=== PATIENT | female | born 1980 | race Caucasian/White ===

== ENCOUNTER 2016-11-21 16:25 | Emergency (ER) | payer MEDICAID, OTHER, SELFPAY ==
[~2016-11-21] VITALS: Ht 157.5 cm; Wt 65.8 kg
[2016-11-21] MEDS ORDERED: HYDROcodone/APAP 5/325 TABLET PO ONE (17:00)
[2016-11-21] MEDS ORDERED: HYDROcodone/APAP 5/325 TABLET ONE (17:05)
[2016-11-21 17:13] VITALS: BP 136/92
[2016-11-21 17:25] LABS: HEMATOCRIT 43.8 % (34.6-47.8); HEMOGLOBIN 14.5 g/dL (11.7-16.4); WHITE BLOOD COUNT 7.7 x10^3/uL (3.4-10)
[2016-11-21 17:32] LABS: BLOOD UREA NITROGEN 10 mg/dL (7-18)
== END 2016-11-21 18:19 | disposition home or self-care (01) ==
LOC: ED 18:13
DX: N92.1 Excessive and frequent menstruation with irregular cycle (principal); E78.00 Pure hypercholesterolemia, unspecified
CPT/HCPCS: 36415; 76830; 80048; 82040; 84703; 85025; 99285

== ENCOUNTER 2017-02-24 09:44 | Emergency (ER) | payer MEDICAID ==
[~2017-02-24] VITALS: Ht 154.9 cm; Wt 66.5 kg
[2017-02-24] MEDS ORDERED: SODIUM CHLORIDE FLUSH 10ML SYR IVF ONE (10:30)
[2017-02-24] MEDS ORDERED: ONDANSETRON 2MG/ML, 2ML IVPush ONE (10:30)
[2017-02-24] MEDS ORDERED: SODIUM CHLORIDE 0.9% 1,000ML IVBOLUS ONE (10:30)
[2017-02-24 11:03] LABS: HEMATOCRIT 42.4 % (34.6-47.8); HEMOGLOBIN 14.7 g/dL (11.7-16.4)
[2017-02-24] MEDS ORDERED: ONDANSETRON 2MG/ML, 2ML ONE (11:06)
[2017-02-24 11:13] LABS: BLOOD UREA NITROGEN 6 mg/dL (7-18)
[2017-02-24 11:14] LABS: PATH.CAST-FLAG NOT PRESENT; SPERM-FLAG NOT PRESENT; SRC-FLAG NOT PRESENT; XTAL-FLAG NOT PRESENT; YLC-FLAG NOT PRESENT
[2017-02-24 11:19] LABS: ASPARTATE AMINO TRANSFERASE 12 U/L (15-37)
[2017-02-24] MEDS ORDERED: morphine SULFATE 10 MG/ML, 1ML ONE ×2 (11:41→13:06)
[2017-02-24] MEDS: MORPHINE SULFATE 4 MG/ML, 1ML IVPush PRN ×2 (11:46→13:07)
[2017-02-24 14:42] VITALS: BP 135/93
== END 2017-02-24 14:46 | disposition home or self-care (01) ==
LOC: ED 13:36
DX: M54.5 Low back pain (principal); R10.84 Generalized abdominal pain; E78.00 Pure hypercholesterolemia, unspecified
CPT/HCPCS: 36415; 74176; 80053; 81001; 84703; 85025; 96374; 96375; 96376; 99285; J2405; J7030

== ENCOUNTER 2017-05-18 23:51 | Emergency (ER) | payer MEDICAID ==
[~2017-05-18] VITALS: Ht 162.6 cm; Wt 66.5 kg
[2017-05-19] MEDS ORDERED: ONDANSETRON ODT 4 MG ONE (00:44)
[2017-05-19] MEDS ORDERED: FAMOTIDINE 20 MG TABLET ONE (00:44)
[2017-05-19] MEDS ORDERED: MAALOX/HYOSCYAMINE/LIDOCAINE 45 ML BTL ONE (00:44)
[2017-05-19] MEDS ORDERED: ASPIRIN 81 MG TABLET CHEW ONE (00:45)
[2017-05-19 00:58] LABS: BASOPHILS # (AUTO) 0.01 x10^3/uL (0-0.1); BASOPHILS % (AUTO) 0 % (0-1); EOSINOPHILS # (AUTO) 0.32 x10^3/uL (0-0.4); EOSINOPHILS % (AUTO) 5 % (1-7); LYMPHOCYTES # (AUTO) 1.31 x10^3/uL (1-3.4); LYMPHOCYTES % (AUTO) 19 % (22-44); MD NO; MEAN CORPUSCULAR HEMOGLOBIN 30.6 pg (27.0-34.8); MEAN CORPUSCULAR HGB CONC 33.9 g/dL (32.4-35.8); MEAN CORPUSCULAR VOLUME 90.4 fL (80-100); MEAN PLATELET VOLUME 7.3 fL (7.4-10.4); MONOCYTES # (AUTO) 0.45 x10^3/uL (0.2-0.8); MONOCYTES % (AUTO) 6 % (2-9); NEUTROPHILS # (AUTO) 4.88 x10^3/uL (1.8-6.8); NEUTROPHILS % (AUTO) 70 % (42-75); PLATELET COUNT 343 x10^3/uL (130-400); RED BLOOD COUNT 4.74 x10^6/uL (3.82-5.3); RED CELL DISTRIBUTION WIDTH 12.6 % (9.6-15.2)
[2017-05-19] MEDS ORDERED: FAMOTIDINE 20 MG TABLET PO ONE (01:00)
[2017-05-19] MEDS ORDERED: MAALOX/HYOSCYAMINE/LIDOCAINE 45 ML BTL PO ONE (01:00)
[2017-05-19] MEDS ORDERED: ASPIRIN 81 MG TABLET CHEW PO ONE (01:00)
[2017-05-19] MEDS ORDERED: ONDANSETRON ODT 4 MG PO ONE (01:00)
[2017-05-19 01:13] LABS: ALBUMIN 3.2 g/dL (3.4-5.0); ANION GAP 7 mmol/L (5-15); CALCIUM 8.7 mg/dL (8.5-10.1); CHLORIDE 104 mmol/L (98-107)
[2017-05-19 01:17] LABS: ALANINE AMINOTRANSFERASE 16 U/L (12-78); ALKALINE PHOSPHATASE 74 U/L (45-117); BILIRUBIN,TOTAL 0.3 mg/dL (0.2-1.0); CREATININE 0.73 mg/dL (0.55-1.02); TOTAL PROTEIN 7.3 g/dL (6.4-8.2); TROPONIN I < 0.015 ng/mL (0.000-0.045)
[2017-05-19 01:54] VITALS: BP 129/74
== END 2017-05-19 01:55 | disposition home or self-care (01) ==
LOC: ED 05-19 00:09
DX: R07.2 Precordial pain (principal); R10.13 Epigastric pain; R11.0 Nausea; R07.89 Other chest pain
CPT/HCPCS: 36415; 71045; 80053; 83690; 84484; 84703; 85025; 93005; 99285; Q0162

== ENCOUNTER 2017-09-22 12:17 | Emergency (ER) | payer MEDICAID ==
[~2017-09-22] VITALS: Ht 154.9 cm; Wt 63.9 kg
[2017-09-22] MEDS ORDERED: SODIUM CHLORIDE FLUSH 10ML SYR IVF ONE (13:00)
[2017-09-22] MEDS ORDERED: DIPHENHYDRAMINE 50 MG/ML, 1ML IVPush ONE (13:00)
[2017-09-22] MEDS ORDERED: METOCLOPRAMIDE 5 MG/ML, 2ML IVPush ONE (13:00)
[2017-09-22] MEDS ORDERED: SODIUM CHLORIDE 0.9% 1,000ML IVBOLUS ONE (13:00)
[2017-09-22] MEDS ORDERED: DIPHENHYDRAMINE 50 MG/ML, 1ML ONE (13:29)
[2017-09-22] MEDS ORDERED: METOCLOPRAMIDE 5 MG/ML, 2ML ONE (13:30)
[2017-09-22] MEDS ORDERED: morphine SULFATE 10 MG/ML, 1ML IVPush ONE (13:30)
[2017-09-22 13:46] LABS: BASOPHILS # (AUTO) 0.18 x10^3/uL (0-0.1); BASOPHILS % (AUTO) 2 % (0-1); EOSINOPHILS # (AUTO) 0.49 x10^3/uL (0-0.4); EOSINOPHILS % (AUTO) 5 % (1-7); LYMPHOCYTES % (AUTO) 15 % (22-44); MD NO; MEAN CORPUSCULAR HEMOGLOBIN 30.3 pg (27.0-34.8); MEAN CORPUSCULAR HGB CONC 33.5 g/dL (32.4-35.8); MEAN CORPUSCULAR VOLUME 90.4 fL (80-100); MEAN PLATELET VOLUME 7.5 fL (7.4-10.4); MONOCYTES % (AUTO) 7 % (2-9); NEUTROPHILS # (AUTO) 7.68 x10^3/uL (1.8-6.8); NEUTROPHILS % (AUTO) 71 % (42-75); PLATELET COUNT 360 x10^3/uL (130-400); RED BLOOD COUNT 4.92 x10^6/uL (3.82-5.3); RED CELL DISTRIBUTION WIDTH 13.6 % (9.6-15.2)
[2017-09-22 13:53] LABS: INTERNATIONAL NORMALIZED RATIO 0.98 (0.93-1.1); PROTHROMBIN TIME 10.1 Seconds (9.6-11.5)
[2017-09-22 13:56] LABS: ALBUMIN 3.5 g/dL (3.4-5.0); ANION GAP 6 mmol/L (5-15); CALCIUM 8.6 mg/dL (8.5-10.1); CHLORIDE 108 mmol/L (98-107)
[2017-09-22 13:59] LABS: ALANINE AMINOTRANSFERASE 19 U/L (12-78); ALKALINE PHOSPHATASE 56 U/L (45-117); BILIRUBIN,TOTAL 0.5 mg/dL (0.2-1.0); CREATININE 0.83 mg/dL (0.55-1.02); TOTAL PROTEIN 7.6 g/dL (6.4-8.2)
[2017-09-22] MEDS ORDERED: MORPHINE SULFATE 4 MG/ML, 1ML ONE (14:17)
[2017-09-22] MEDS ORDERED: LIDOCAINE-MPF 1%, 2ML ONE (16:33)
[2017-09-22] MEDS ORDERED: HYDROmorphone 2 MG/ML, 1ML ONE (16:34)
[2017-09-22] MEDS: HYDROmorphone 2 MG/ML, 1ML IVPush PRN ×2 (16:38→20:38)
[2017-09-22 17:56] LABS: GLUCOSE, CSF 55 mg/dL (40-80); TOTAL PROTEIN,CSF 33 mg/dL (15-45)
[2017-09-22] MEDS ORDERED: OMNIPAQUE 350 MG/ML, 100ML BOTTLE ONE (19:23)
[2017-09-22 22:38] VITALS: BP 139/76
== END 2017-09-22 22:49 | disposition other institution (70) ==
LOC: ED 14:12
DX: I67.1 Cerebral aneurysm, nonruptured (principal); R51 Headache; R79.1 Abnormal coagulation profile
CPT/HCPCS: 36415; 62270; 70450; 70496; 80053; 82945; 84157; 85025; 85610; 85730; 87070; 87205; 87252; 89051; 96374; 96375; 99291; 99292; J1170; J1200; J2270; J2765; J7030; Q9967; J3490

== ENCOUNTER 2020-11-05 15:55 | Emergency (ER) | payer MEDICAID ==
[~2020-11-05] VITALS: Ht 157.5 cm; Wt 61.5 kg
[2020-11-05 16:29] VITALS: BP 139/86
== END 2020-11-05 16:47 | disposition home or self-care (01) ==
LOC: ED 16:35
DX: H60.501 Unspecified acute noninfective otitis externa, right ear (principal); E78.00 Pure hypercholesterolemia, unspecified
CPT/HCPCS: 99283

== ENCOUNTER 2020-12-23 10:55 | Emergency (ER) | payer MEDICAID ==
[~2020-12-23] VITALS: Ht 157.5 cm; Wt 64.8 kg
[2020-12-23 11:09] VITALS: BP 159/101
== END 2020-12-23 12:43 | disposition home or self-care (01) ==
LOC: ED 11:04
DX: H65.01 Acute serous otitis media, right ear (principal); H60.61 Unspecified chronic otitis externa, right ear; E11.9 Type 2 diabetes mellitus without complications; E78.00 Pure hypercholesterolemia, unspecified
CPT/HCPCS: 99283